=== PATIENT | male | born 1965 | race Hispanic/Latino ===

== ENCOUNTER → 2023-05-12 | Outpatient (REF) | payer OTHER ==
[~2023-05-12] MED LIST: ATORVASTATIN CA20 MG PO; CONCERTA27 MG PO; CYMBALTA20 MG PO; NAPROSYN500 MG PO; OMEPRAZOLE40 MG PO
== END ==
LOC: US 10:53
PROVIDERS: ATTEND Nurse Practitioner
DX: K21.9 Gastro-esophageal reflux disease without esophagitis (principal); R10.84 Generalized abdominal pain
CPT/HCPCS: 76700